=== PATIENT | female | born 1965 | race American Indian/Alaskan Native ===

== ENCOUNTER 2017-07-14 01:39 | Emergency (ER) | payer OTHER ==
[2017-07-14 01:39] VITALS: BMI 38.0
[2017-07-14 02:23] VITALS: TEMP 98
--- NOTE | 2017-07-14 02:32 | ED PDOC ---
Arrival/HPI - General Chief Complaint: Lower Extremity Problem/Injury Time Seen by Provider: 07/14/17 02:32 Historian: Patient - History of Present Illness Narrative History of Present Illness (Text): 07/14/17 02:32 Prashant Trejo is a 52 year old female, whose past medical history includes left torn ACL, hypertension, diabetes, fibromyalgia, and chronc back pain, who presents to the ED complaining of left knee/ankle pain s/p injury tonight. Patient states she fell while stepping off a curb tonight and is now experiencing left knee pain radiating to left ankle/foot. Patient denies any weakness/numbness/tingling in the extremity, calf pain, other trauma/injury, or any other complaints. Time/Duration: Other (tonight) Symptom Onset: Gradual Symptom Course: Unchanged Activities at Onset: Light Context: Walking, Street Past Medical History - Provider Review Nursing Documentation Reviewed: Yes - Infectious Disease Hx of Infectious Diseases: None - Tetanus Immunization Tetanus Immunization: Up to Date - Reproductive Menopause: No - Cardiac Hx Hypertension: Yes (Hx of consistent borderline elevated BP's.) Other/Comment: cardiac cath - Pulmonary Hx Asthma: Yes - Neurological Hx Neurological Disorder: Yes Hx Dizziness: Yes - HEENT Hx HEENT Disorder: No - Renal Hx Renal Disorder: No - Endocrine/Metabolic Hx Endocrine Disorders: No (Hx of Sickle Cell Trait.) Hx Diabetes Mellitus Type 2: Yes - Hematological/Oncological Hx Anemia: Yes (Blood Transfusions.) - Integumentary Hx Dermatological Disorder: No - Musculoskeletal/Rheumatological Hx Arthritis: Yes (Left side: left neck, left arm, left shoulder, left leg and left foot.) - Gastrointestinal Hx Diverticulitis: Yes - Genitourinary/Gynecological Hx Genitourinary Disorders: Yes (Heavy Vaginal Bleeding/ Anemia/ Blood Transfusion.) Other/Comment: Hx of Fibroid Uterus. - Psychiatric Hx Anxiety: Yes Hx Depression: Yes Hx Substance Use: No - Surgical History Hx Appendectomy: Yes - Anesthesia Hx Anesthesia: No Hx Anesthesia Reactions: No Hx Malignant Hyperthermia: No - Suicidal Assessment Feels Threatened In Home Enviroment: No Family/Social History - Physician Review Nursing Documentation Reviewed: Yes Family/Social History: Unknown Family HX Smoking Status: Former Smoker Hx Alcohol Use: No Hx Substance Use: No Hx Substance Use Treatment: No Allergies/Home Meds Allergies/Adverse Reactions: Allergies lisinopril Allergy (Verified 07/14/17 02:36) SWELLING hydromorphone [From Dilaudid] Adverse Reaction (Verified 07/14/17 02:36) DIZZINESS Home Medications: Home Meds Medication Instructions Recorded Confirmed Metoprolol Tartrate [Lopressor] 100 mg PO DAILY 06/25/15 07/14/17 ALPRAZolam [Xanax] 1 mg PO Q12 PRN 01/07/16 07/14/17 Alogliptin Benzoate [Alogliptin] 25 mg PO DAILY 07/14/17 07/14/17 Clonidine HCl [Catapres] 0.2 mg PO TID 07/14/17 07/14/17 Gabapentin [Neurontin] 300 mg PO TID 07/14/17 07/14/17 Lidocaine/Transparent Dressing 1 oin TOP DAILY 07/14/17 07/14/17 [Anecream 4% Kit] Review of Systems - Physician Review All systems were reviewed & negative as marked: Yes - Review of Systems Constitutional: Normal. absent: Fevers Eyes: Normal ENT: Normal Respiratory: Normal. absent: SOB, Cough Cardiovascular: Normal. absent: Chest Pain Gastrointestinal: Normal. absent: Abdominal Pain, Diarrhea, Nausea, Vomiting Genitourinary Female: Normal. absent: Dysuria, Frequency, Hematuria, Urine Output Changes Musculoskeletal: Arthralgias (+left knee pain, +left ankle/foot pain) Skin: Normal Neurological: Normal Endocrine: Normal Hemo/Lymphatic: Normal Psychiatric: Normal Physical Exam Vital Signs Reviewed: Yes Vital Signs Temp Pulse Resp BP Pulse Ox 07/14/17 01:39 98.0 F 90 12 157/78 H 99 Temperature: Afebrile Blood Pressure: Normal Pulse: Regular Respiratory Rate: Normal Appearance: Positive for: Well-Appearing, Non-Toxic, Comfortable Pain Distress: None Mental Status: Positive for: Alert and Oriented X 3 - Systems Exam Head: Present: Atraumatic, Normocephalic Pupils: Present: PERRL Extroacular Muscles: Present: EOMI Conjunctiva: Present: Normal Mouth: Present: Moist Mucous Membranes Neck: Present: Normal Range of Motion Respiratory/Chest: Present: Clear to Auscultation, Good Air Exchange. No: Respiratory Distress, Accessory Muscle Use Cardiovascular: Present: Regular Rate and Rhythm, Normal S1, S2. No: Murmurs Abdomen: Present: Normal Bowel Sounds. No: Tenderness, Distention, Peritoneal Signs Upper Extremity: Present: Normal Inspection. No: Cyanosis, Edema Lower Extremity: Present: NORMAL PULSES, Neurovascularly Intact, Capillary Refill < 2 s. No: Edema, Cyanosis, Normal ROM (Discomfort with left ankle flexion, discomfort with left knee flexion), Tenderness, Swelling, Erythema, Deformity, Temperature Abnormalties Neurological: Present: GCS=15, CN II-XII Intact, Speech Normal Skin: Present: Warm, Dry, Normal Color. No: Rashes Psychiatric: Present: Alert, Oriented x 3, Normal Insight, Normal Concentration Medical Decision Making ED Course and Treatment: 07/14/17 02:32 Impression: 52 year old female c/o left knee and left ankle/foot pain. Plan: -- XR Left Knee -- XR Left Ankle -- XR Left Foot -- Percocet -- Reassess and disposition Progress Notes: 07/14/17 03:30 Reviewed radiology, XR Left Knee shows no acute processes/fracture. XR Left Ankle shows no acute processes/fracture. XR Left Foot shows no acute processes/fracture. 07/14/17 03:37 On re-evaluation, patient feels better. Discussed results and plan with patient who expresses understanding. All questions answered and there is agreement with the plan to discharge home with instructions. Patient stable for discharge. Patient given knee immobilizer, crutches. Return if symptoms persist or worsen. - RAD Interpretation Radiology Orders: 07/14/17 02:34 ANKLE LEFT 3 VIEWS ROUTINE [RAD] Stat FOOT LEFT 3 VIEWS ROUTINE [RAD] Stat 07/14/17 02:35 KNEE WITH PATELLA LEFT 3 VIEW [RAD] Stat Storeroom Clerk: Radiologist - Medication Orders Current Medication Orders: Discontinued Medications Oxycodone/Acetaminophen (Percocet 5/325 Mg Tab) 1 tab PO STAT STA Stop: 07/14/17 02:34 Last Admin: 07/14/17 02:45 Dose: 1 tab - Scribe Statement The provider has reviewed the documentation as recorded by the Scribandre Guillaume All medical record entries made by the Scribe were at my direction and personally dictated by me. I have reviewed the chart and agree that the record accurately reflects my personal performance of the history, physical exam, medical decision making, and the department course for this patient. I have also personally directed, reviewed, and agree with the discharge instructions and disposition. Disposition/Present on Arrival - Present on Arrival Any Indicators Present on Arrival: No History of DVT/PE: No History of Uncontrolled Diabetes: No Urinary Catheter: No History of Decub. Ulcer: No History Surgical Site Infection Following: None - Disposition Have Diagnosis and Disposition been Completed?: Yes Diagnosis: Knee sprain, Ankle sprain Disposition: HOME/ ROUTINE Disposition Time: 03:37 Patient Plan: Discharge Patient Problems: Current Active Problems Problem Status Onset Ankle sprain Acute Knee sprain Acute Condition: GOOD Discharge Instructions (ExitCare): Ankle Sprain (ED), Knee Sprain (ED) Additional Instructions: maintain knee immobilizer/ankle air cast/use crutches/no weight bearing on the affected area/medication as prescribed/follow up with the orthopedist this week Prescriptions: Naproxen [Naprosyn] 500 mg PO BID PRN #14 tab PRN Reason: Pain Referrals: Cedric Jackson III, MD [Medical Doctor] - Follow up with primary [facility] [place] [Outside] - Follow up with primary Forms: [employer] (Bengali)
[2017-07-14] MEDS ORDERED: Oxycodone/Acetaminophen 5/325 mg Tab PO STA (02:33)
[2017-07-14 05:11] VITALS: BP 147/84; PULSE 82; RESP 16; O2SAT 98
--- NOTE | 2017-07-14 07:57 | RAD ---
PROCEDURE: Left Ankle Radiographs. HISTORY: injury COMPARISON: None FINDINGS: BONES: No fracture. Plantar calcaneal spur. JOINTS: Normal. No osteoarthritis. Ankle mortise maintained. Talar dome intact SOFT TISSUES: Normal. OTHER FINDINGS: None. IMPRESSION: No acute fracture.
--- NOTE | 2017-07-14 07:58 | RAD ---
PROCEDURE: Left Foot Radiographs. HISTORY: injury COMPARISON: None. FINDINGS: BONES: Normal. No fracture. JOINTS: Normal. SOFT TISSUES: Normal. OTHER FINDINGS: None. IMPRESSION: Normal left foot radiographs.
--- NOTE | 2017-07-14 07:59 | RAD ---
PROCEDURE: Left Knee Radiographs. HISTORY: Pain. COMPARISON: None. FINDINGS: BONES: Technically limited. No acute fracture. JOINTS: Severe tricompartmental osteoarthritis. No articular erosions. JOINT EFFUSION: None. OTHER FINDINGS: None. IMPRESSION: Severe tricompartmental osteoarthritis.
== END 2017-07-14 05:11 | disposition home or self-care (01) ==
LOC: ED 01:39
DX: S83.92XA Sprain of unspecified site of left knee, initial encounter (principal); S93.402A Sprain of unspecified ligament of left ankle, initial encounter; W01.0XXA Fall on same level from slipping, tripping and stumbling without subsequent striking against object, initial encounter; Y93.89 Activity, other specified; Y92.480 Sidewalk as the place of occurrence of the external cause; I10 Essential (primary) hypertension; E11.9 Type 2 diabetes mellitus without complications; Z87.891 Personal history of nicotine dependence

== ENCOUNTER 2018-10-18 12:22 | Emergency (ER) | payer MEDICAID, OTHER ==
[2018-10-18] MEDS ORDERED: Oxycodone/Acetaminophen 5/325 mg Tab PO STA (13:01)
[2018-10-18 13:09] VITALS: TEMP 97.5; BMI 37.5
[2018-10-18] MEDS ORDERED: Sodium Chloride 0.9% 1,000 ML IV STA ×2 (13:33→14:34)
[2018-10-18] MEDS ORDERED: Labetalol 5 mg/ml Inj 20ML IV STA (13:33)
[2018-10-18 14:06] LABS: BASO # 0.02 K/mm3 (0.0-2.0); BASO % 0.2 % (0.0-3.0); EOS # 0.2 (0.0-0.7); EOS % 1.8 % (1.5-5.0); GRAN # 6.23 (1.4-6.5); GRAN % 74.5 % (50.0-68.0); HEMOGLOBIN 13.5 g/dL (12.0-16.0); LYMPH # 1.6 (1.2-3.4); LYMPH % 19.4 % (22.0-35.0); MEAN CELL VOLUME 82.9 fl (80.0-105.0); MEAN CORPUSCULAR HEMOGLOBIN 26.2 pg (25.0-35.0); MEAN CORPUSCULAR HGB CONC 31.5 g/dl (31.0-37.0); MEAN PLATELET VOLUME 10.2 fl (7.0-11.0); MONO # 0.3 (0.1-0.6); MONO % 4.1 % (1.0-6.0); RBC 5.16 10^6/uL (3.5-6.1); RED CELL DISTRIBUTION WIDTH 14.2 % (11.5-14.5); WHITE BLOOD COUNT 8.4 10^3/uL (4.5-11.0)
--- NOTE | 2018-10-18 14:15 | ED PDOC ---
Arrival/HPI - General Chief Complaint: Upper Extremity Problem/Injury Time Seen by Provider: 10/18/18 12:45 Historian: Patient - History of Present Illness Narrative History of Present Illness (Text): 10/18/18 13:25 53 year old female, whose past medical history includes fibromyalgia, hypertension, diabetes, and arthritis, who presents to the emergency department complaining of pain to neck that radiated to left shoulder and left forearm that began the morning of 10/16/18, noting she cannot lift the arm or move it much at all. Patient states her neck was hurting on 10/15/18 but thought it was not serious since she "has a bulging disc there." Patient reports the pain radiated to her shoulder and forearm the next day. Patient states she took Ibuprofen 800mg, used Epson salt, [place], with minimal relief. Patient stat es the neck pain was gone when she woke up yesterday morning. As of this morning, pt notes her left arm is stiff and she cannot lift it. Patient reports her blood pressure is normally high, noting she took her Gabapentin around 09:00 this morning and Ibuprofen approximately 2 hours prior to arrival. Patient denies any recent falls, recent trauma, or any other complaints. PMD: Master Tate Time/Duration: > week (Pt states symptoms began 10/16/18) Symptom Onset: Sudden Symptom Course: Unchanged Activities at Onset: Light Past Medical History - Provider Review Nursing Documentation Reviewed: Yes - Infectious Disease Hx of Infectious Diseases: None - Tetanus Immunization Tetanus Immunization: Up to Date - Cardiac Hx Cardiac Disorders: Yes Hx Hypertension: Yes (Hx of consistent borderline elevated BP's.) - Pulmonary Hx Respiratory Disorders: Yes Hx Asthma: Yes - Neurological Hx Neurological Disorder: Yes - HEENT Hx HEENT Disorder: No - Renal Hx Renal Disorder: No - Endocrine/Metabolic Hx Endocrine Disorders: Yes Hx Diabetes Mellitus Type 2: Yes - Hematological/Oncological Hx Blood Disorders: Yes Hx Sickle Cell Trait: Yes - Integumentary Hx Dermatological Disorder: No - Musculoskeletal/Rheumatological Hx Musculoskeletal Disorders: Yes Hx Arthritis: Yes (Left side: left neck, left arm, left shoulder, left leg and left foot.) - Gastrointestinal Hx Gastrointestinal Disorders: Yes Hx Diverticulitis: Yes - Genitourinary/Gynecological Hx Genitourinary Disorders: No - Psychiatric Hx Psychophysiologic Disorder: Yes Hx Anxiety: Yes Hx Depression: Yes Hx Substance Use: No - Surgical History Hx Appendectomy: Yes Hx Cardiac Catheterization: Yes Hx Hysterectomy: Yes Hx Orthopedic Surgery: Yes (L knee) - Anesthesia Hx Anesthesia: Yes Hx Anesthesia Reactions: No Hx Malignant Hyperthermia: No - Suicidal Assessment Feels Threatened In Home Enviroment: No Family/Social History - Physician Review Nursing Documentation Reviewed: Yes Family/Social History: No Known Family HX Smoking Status: Former Smoker Hx Alcohol Use: No Hx Substance Use: No Hx Substance Use Treatment: No Allergies/Home Meds Allergies/Adverse Reactions: Allergies lisinopril Allergy (Verified 07/14/17 02:36) SWELLING hydromorphone [From Dilaudid] Adverse Reaction (Verified 07/14/17 02:36) DIZZINESS Home Medications: Home Meds Medication Instructions Recorded Confirmed Clonidine HCl [Catapres] 0.2 mg PO TID 07/14/17 10/18/18 Gabapentin [Neurontin] 300 mg PO TID 07/14/17 10/18/18 Lidocaine/Transparent Dressing 1 oin TOP DAILY 07/14/17 10/18/18 [Anecream 4% Kit] Insulin Aspart, Recombinant 100 unit SQ ACHS 09/03/18 10/18/18 [Novolog] amLODIPine [Norvasc] 10 mg PO DAILY 09/03/18 10/18/18 metFORMIN [glucOPHAGE] 500 mg PO BID 09/03/18 10/18/18 Review of Systems - Physician Review All systems were reviewed & negative as marked: Yes - Review of Systems Constitutional: Normal Musculoskeletal: Neck Pain (Pt notes neck pain since 10/15/18), Other (Pt reports pain to left shoulder and forearm since 10/16, noting she cannot lift arm). absent: Normal Physical Exam Vital Signs Reviewed: Yes Vital Signs Temp Pulse Resp BP Pulse Ox 10/18/18 12:58 97.5 F L 78 16 192/107 H 96 10/18/18 12:57 97.5 F L 78 16 192/107 H 95 Temperature: Afebrile Blood Pressure: Hypertensive Pulse: Regular Respiratory Rate: Normal Appearance: Positive for: Well-Appearing, Non-Toxic Pain Distress: Mild Mental Status: Positive for: Alert and Oriented X 3 Finger Stick Blood Glucose: 491 - Systems Exam Head: Present: Atraumatic, Normocephalic Pupils: Present: PERRL Extroacular Muscles: Present: EOMI Conjunctiva: Present: Normal Mouth: Present: Moist Mucous Membranes Neck: Present: Normal Range of Motion Respiratory/Chest: Present: Clear to Auscultation, Good Air Exchange. No: Respiratory Distress, Accessory Muscle Use Cardiovascular: Present: Regular Rate and Rhythm, Normal S1, S2. No: Murmurs Abdomen: No: Tenderness, Distention, Peritoneal Signs Back: Present: Normal Inspection Upper Extremity: Present: Tenderness (TTP to left acromioclavicular joint), Capillary Refill < 2s. No: Normal Inspection, Normal ROM (Unable to abduct left arm beyond 90 degrees. intact flexion and abduction of arm. ) Lower Extremity: Present: Normal Inspection. No: Edema Neurological: Present: GCS=15, CN II-XII Intact, Speech Normal, Motor Func Grossly Intact (Motor strength 5/5) Skin: Present: Other (negative mottling of skin ) Psychiatric: Present: Alert, Oriented x 3, Normal Insight, Normal Concentration Medical Decision Making ED Course and Treatment: 10/18/18 13:25 Impression: 53 year old male who presents to the emergency department complaining of pain to neck that radiated to left shoulder and left forearm that began the morning of 10/16/18, noting she cannot lift the arm or move it much at all. Differential Diagnosis included but are not limited to: --Impingement syndrome --Bursitis --DKA Plan: -- Labs -- Percocet -- IV fluids -- Toradol -- Trandate -- Valium -- POC Urine test -- X-ray of left shoulder -- Urinalysis -- Reassess and disposition Prior Visits: Notes and results from previous visits were reviewed. Progress Notes: 10/18/18 14:35 Labs reviewed with blood glucose noted to be 509 with no anion gap or decrease in bicarbonate. Additional fluids as well as insulin ordered. BP noted to be elevated 190/109 despite patient stating she took her antihypertensive medications this morning. Labetalol ordered. 10/18/18 16:19 Repeat fingerstick in the 300s. Second liter given. - Lab Interpretations Lab Results: 10/18/18 14:00 Lab Results 10/18/18 14:00: WBC 8.4, RBC 5.16, Hgb 13.5, Hct 42.8, MCV 82.9, MCH 26.2, MCHC 31.5, RDW 14.2, Plt Count 259, MPV 10.2, Gran % 74.5 H, Lymph % (Auto) 19.4 L, [place] % (Auto) 4.1, Eos % (Auto) 1.8, Baso % (Auto) 0.2, Gran # 6.23, Lymph # ( Auto) 1.6, [place] # (Auto) 0.3, Eos # (Auto) 0.2, Baso # (Auto) 0.02 - RAD Interpretation Narrative RAD Interpretations (Text): X-ray of left shoulder reviewed by radiologist, shows: Dictator : Cindy Garibay MD Report Date : 10/18/2018 14:39:31 IMPRESSION: Evidence of calcific tendinitis. Acromioclavicular arthropathy. Partially imaged probable cardiomegaly. Radiology Orders: 10/18/18 13:25 SHOULDER LEFT [RAD] Stat Corporate Lawyer: Radiologist - Medication Orders Current Medication Orders: Sodium Chloride (Sodium Chloride 0.9%) 1,000 mls @ 999 mls/hr IV .Q1H1M STA Stop: 10/18/18 14:33 Last Admin: 10/18/18 13:52 Dose: 999 mls/hr eMAR Start Stop Document 10/18/18 13:52 KV (Rec: 10/18/18 13:52 [id number]) Intravenous Solution Start Date 10/18/18 Start Time 13:52 Discontinued Medications Diazepam (Valium) 5 mg PO ONCE ONE; Protocol Stop: 10/18/18 13:02 Last Admin: 10/18/18 13:29 Dose: 5 mg Ketorolac Tromethamine (Toradol) 60 mg IM STAT STA Stop: 10/18/18 13:16 Last Admin: 10/18/18 13:44 Dose: 60 mg MAR Pain Assessment Document 10/18/18 13:44 KV (Rec: 10/18/18 13:44 KV [facility] [place] [facility]-21) Pain Reassessment Is this a pain reassessment? No Sleep Is patient sleeping during reassessment? No Presence of Pain Presence of Pain Yes Pain Scale Used Protocol: PSCALES Pain Scale Used Numeric Location Left, Right or Bilateral Left Pain Location Body Site Arm Description Description Constant Intensity of Pain at present 10 IM Administration Charges Document 10/18/18 13:44 KV (Rec: 10/18/18 13:44 KV [facility] [place]-[id number]) Injection Site MAR Injection Site Right Gluteus Medius Charges for Administration # of IM Administrations 1 Labetalol HCl (Trandate) 20 mg IV STAT STA Stop: 10/18/18 13:34 Oxycodone/Acetaminophen (Percocet 5/325 Mg Tab) 1 tab PO STAT STA Stop: 10/18/18 13:02 Last Admin: 10/18/18 13:29 Dose: 1 tab MAR Pain Assessment Document 10/18/18 13:29 KV (Rec: 10/18/18 13:30 KV [facility] [place]-21) Pain Reassessment Is this a pain reassessment? No Sleep Is patient sleeping during reassessment? No Presence of Pain Presence of Pain Yes Pain Scale Used Protocol: PSCALES Pain Scale Used Numeric Location Left, Right or Bilateral Left Pain Location Body Site Arm Description Description Constant Intensity of Pain at present 10 - Scribe Statement The provider has reviewed the documentation as recorded by the Scribe Teresa Saavedra All medical record entries made by the Scribe were at my direction and personally dictated by me. I have reviewed the chart and agree that the record accurately reflects my personal performance of the history, physical exam, medical decision making, and the department course for this patient. I have also personally directed, reviewed, and agree with the discharge instructions and disposition. Disposition/Present on Arrival - Present on Arrival Any Indicators Present on Arrival: Yes History of DVT/PE: No History of Uncontrolled Diabetes: Yes Urinary Catheter: No History of Decub. Ulcer: No History Surgical Site Infection Following: None - Disposition Have Diagnosis and Disposition been Completed?: Yes Diagnosis: Hyperglycemia, Shoulder pain, acute Disposition Time: 17:37 Patient Plan: Discharge Condition: IMPROVED Discharge Instructions (ExitCare): Hyperglycemia, Adult (DC), Shoulder Pain (DC) Print Language: [place] Additional Instructions: All medical record entries made by the Scribe were at my direction and personall y dictated by me. I have reviewed the chart and agree that the record accurately reflects my personal performance of the history, physical exam, medical decision making, and the department course for this patient. I have also personally directed, reviewed, and agree with the discharge instructions and disposition. Prescriptions: Cyclobenzaprine [Cyclobenzaprine HCl] 10 mg PO PRN PRN #6 tab PRN Reason: Muscle Spasm Lidocaine 5% [Lidoderm] 1 ea TD Q12 #5 patch Referrals: [facility] [Outside] - Follow up with primary Teresa Brooks MD [Medical Doctor] - Follow up with primary Forms: [employer] (Belarusian)
[2018-10-18 14:31] LABS: ALB/GLOB RATIO 1.2 (1.1-1.8); ALT/SGPT 19 U/L (7-56); AST/SGOT 17 U/L (14-36); BLOOD UREA NITROGEN 23 mg/dL (7-21); CALCIUM 9.4 mg/dL (8.4-10.5); GFR NON-AFRICAN AMERICAN > 60
[2018-10-18] MEDS ORDERED: Insulin Regular 1 UNITS/0.01 ML ML SC STA (14:34)
--- NOTE | 2018-10-18 14:42 | RAD ---
PROCEDURE: Radiographs of the Left Shoulder HISTORY: difficulty w/ ABduction pain w/ TTP of joint COMPARISON: None. FINDINGS: BONES: No acute displaced fracture. The distal clavicle and underlying ribs appear intact. JOINTS: No acute dislocation. Acromioclavicular arthropathy. Calcification adjacent to the humeral head consistent with calcific tendinitis. SOFT TISSUES: Soft tissues appear unremarkable. No evidence of radiopaque foreign body. Partially imaged probable cardiomegaly. IMPRESSION: Evidence of calcific tendinitis. Acromioclavicular arthropathy. Partially imaged probable cardiomegaly.
[2018-10-18 15:19] LABS: ARTERIAL BLOOD GAS HCO3 23.1 mmol/L (21-28); ARTERIAL BLOOD GAS HEMOGLOBIN 11.4 g/dL (11.7-17.4); ARTERIAL BLOOD GAS O2 CAPACITY 15.8 mL/dl (16-24); ARTERIAL BLOOD GAS O2 CONTENT 15.5 ML/dl (15-23); ARTERIAL BLOOD GAS O2 SAT 98.4 % (95-98); ARTERIAL BLOOD GAS PCO2 39 mm/Hg (35-45); ARTERIAL BLOOD GAS PH 7.38 (7.35-7.45); ARTERIAL BLOOD GAS TCO2 24.3 mmol.L (22-28)
[2018-10-18 16:33] VITALS: PULSE 66
[2018-10-18 18:21] VITALS: BP 179/81; RESP 18; O2SAT 97
== END 2018-10-18 18:20 | disposition home or self-care (01) ==
LOC: ED 12:22
DX: M25.512 Pain in left shoulder (principal); E11.65 Type 2 diabetes mellitus with hyperglycemia; I10 Essential (primary) hypertension; M79.7 Fibromyalgia; Z87.891 Personal history of nicotine dependence
CPT/HCPCS: 73030; 80053; 82803; 83735; 85025; 96372; 99284; J1885; J7030